=== PATIENT | male | born 1980 | race African-American/Black ===

== ENCOUNTER 2024-08-09 15:26 | Emergency (ER) | payer MEDICAID ==
[~2024-08-09] VITALS: Ht 180.3 cm; Wt 113.6 kg
[2024-08-09 16:45] VITALS: TEMP 98
[2024-08-09 17:00] LABS: BASOPHILS % (AUTO) 0.4 % (0.0-2.0); EOSINOPHILS % (AUTO) 1.5 % (1.0-6.0); HEMOGLOBIN 14.3 g/dL (13.5-17.5); LYMPHOCYTES # (AUTO) 2.3 K/uL (1.0-4.8); MEAN CORPUSCULAR HEMOGLOBIN 28.4 pg (26.0-34.0); MEAN CORPUSCULAR HGB CONC 33.2 G/dL (31.0-37.0); MEAN CORPUSCULAR VOLUME 86 fL (80-100); MONOCYTES # (AUTO) 0.7 K/uL (0.1-1.0); MONOCYTES % (AUTO) 4.6 % (2.0-9.0); NEUTROPHILS # (AUTO) 11.1 K/uL (1.8-7.7); NEUTROPHILS % (AUTO) 77.5 % (40.0-70.0); PLATELET COUNT (AUTO) 277 K/uL (150-450); RED BLOOD CELL COUNT(AUTO) 5.02 MIL/uL (4.50-5.90); RED CELL DISTRIBUTION WIDTH 15.7 % (11.5-14.5); WHITE BLOOD COUNT (AUTO) 14.3 K/uL (4.5-11.0)
[2024-08-09 17:11] LABS: ANION GAP 9 mmol/L (8-16); CALCIUM, TOTAL 8.7 mg/dL (8.8-10.5); CARBON DIOXIDE 27 mmol/L (22-29); CHLORIDE 107 mmol/L (98-107); CREATININE 0.88 mg/dL (0.60-1.30); GLOMERULAR FILTR. RATE CALC > 60 mL/min (>60); GLUCOSE,RANDOM 121 mg/dL (70-110); POTASSIUM 3.1 mmol/L (3.5-5.1); SODIUM SERUM 143 mmol/L (136-145); UREA NITROGEN, BLOOD 16 mg/dL (7-18)
[2024-08-09] MEDS: SODIUM CHLORIDE 0.9% 1,000 ML IV ONE (17:11)
[2024-08-09] MEDS: ACETAMINOPHEN 500 MG TABLET PO ONE (17:11)
[2024-08-09] MEDS: KETOROLAC TROMETHAMINE 30 MG/ML VIAL IVP ONE (17:11)
[2024-08-09 17:20] LABS: TROPONIN I-HIGH SENSITIVITY 18 ng/L (<76)
[2024-08-09] MEDS: POTASSIUM CHLORIDE 20 MEQ ER TABLET PO ONE (18:02)
[2024-08-09] MEDS ORDERED: ACET-66 PO (18:27)
[2024-08-09] MEDS ORDERED: IBUP-1554 PO (18:27)
[2024-08-09] MEDS ORDERED: LORA-1000 PO (18:27)
[2024-08-09 18:43] VITALS: BP 168/94; PULSE 74; RESP 20; O2SAT 96
== END 2024-08-09 21:47 | disposition left against medical advice (07) ==
LOC: EMS 15:26
DX: E87.6 Hypokalemia (principal); R07.89 Other chest pain; I10 Essential (primary) hypertension; F31.9 Bipolar disorder, unspecified; E11.9 Type 2 diabetes mellitus without complications; Z87.891 Personal history of nicotine dependence
CPT/HCPCS: 99285; 96374; 71045; 96361; 80048; 84484; 85025; 36415; 93005; J1885; J7030